=== PATIENT | female | born 1975 | race Caucasian/White ===

== ENCOUNTER 2017-08-14 05:30 | Day surgery (SDC) | payer OTHER ==
[~2017-08-14 05:30] MED LIST: ATABEX PRENATAL1 TAB; SYNTHROID100 MCG PO
== END 2017-08-14 11:55 | disposition home or self-care (01) ==
LOC: CIR.AMB 05:30 → LAB 12:27 → CIR.AMB 13:30
DX: N30.10 Interstitial cystitis (chronic) without hematuria (principal)

== ENCOUNTER 2019-05-08 09:51 | Emergency (ER) | payer OTHER ==
[~2019-05-08] VITALS: Ht 172.7 cm; Wt 63.5 kg
== END 2019-05-08 12:48 | disposition home or self-care (01) ==
LOC: ER 09:51
DX: R53.1 Weakness (principal)

== ENCOUNTER 2020-07-27 20:34 | Emergency (ER) | payer OTHER ==
[~2020-07-27] VITALS: Ht 172.7 cm; Wt 68.0 kg
[2020-07-27] MEDS ORDERED: PROAIR HFA8.5 GM IH (21:44)
[2020-07-28] MEDS ORDERED: ZITHROMAX500 MG PO ×3 (04:21→04:23)
[2020-07-28] MEDS ORDERED: ALBUTEROL2.5 MG/3 M IH ×3 (04:21→04:23)
[2020-07-28] MEDS ORDERED: SYMBICORT 16010.2 GM IH ×3 (04:21→04:23)
[2020-07-28] MEDS ORDERED: ZYNCOF 20-400120 ML PO ×2 (04:21→04:23)
== END 2020-07-28 04:37 | disposition home or self-care (01) ==
LOC: ER 20:34
DX: R00.2 Palpitations (principal); Z03.818 Encounter for observation for suspected exposure to other biological agents ruled out

== ENCOUNTER 2020-08-16 09:35 | Emergency (ER) | payer OTHER ==
[~2020-08-16] VITALS: Ht 172.7 cm; Wt 69.4 kg
[~2020-08-16 09:35] MED LIST changes: +ALBUTEROL2.5 MG/3 M IH; +PROAIR HFA8.5 GM IH; +SYMBICORT 16010.2 GM IH; +ZITHROMAX500 MG PO; +ZYNCOF 20-400120 ML PO
== END 2020-08-16 14:24 | disposition home or self-care (01) ==
LOC: ER 09:35
DX: R53.81 Other malaise (principal); R51.9 Headache, unspecified; Z03.818 Encounter for observation for suspected exposure to other biological agents ruled out

== ENCOUNTER 2020-12-26 16:15 | Emergency (ER) | payer OTHER ==
[~2020-12-26] VITALS: Ht 172.7 cm; Wt 74.8 kg
== END 2020-12-26 22:36 | disposition home or self-care (01) ==
LOC: ER 16:15
DX: E05.80 Other thyrotoxicosis without thyrotoxic crisis or storm (principal); B96.0 Mycoplasma pneumoniae [M. pneumoniae] as the cause of diseases classified elsewhere; Z11.52 Encounter for screening for COVID-19

== ENCOUNTER 2021-04-26 06:09 | Day surgery (SDC) | payer OTHER | END 2021-04-26 13:10 | disposition home or self-care (01) | LOC: CIR.AMB 06:09 | PROVIDERS: ATTEND Obstetrics & Gynecology | DX: N84.0 Polyp of corpus uteri (principal); Z20.822 Contact with and (suspected) exposure to COVID-19 ==